=== PATIENT | male | born 2000 | race African-American/Black ===

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

== ENCOUNTER 2020-03-19 20:53 | Emergency (ER) | payer BC, OTHER ==
[~2020-03-19] VITALS: Ht 182.9 cm; Wt 74.0 kg
[2020-03-19 21:41] LABS: BASO % 0 % (0-3); EOS # 0.1 x10^3/uL (0.0-0.7); EOS % 1 % (0-3); HEMATOCRIT 38.9 % (39.0-53.0); HEMOGLOBIN 13.4 g/dL (13.0-17.5); LYMPH # 1.8 x10^3/uL (1.0-4.8); LYMPH % 25 % (24-48); MEAN CORPUSCULAR HEMOGLOBIN 28 pg (25-35); MEAN CORPUSCULAR HGB CONC 34 g/dL (31-37); MEAN CORPUSCULAR VOLUME 80 fL (79-100); MONO # 0.7 x10^3/uL (0.0-1.1); MONO % 10 % (0-9); NEUT # 4.6 x10^3/uL (1.8-7.7); NEUT % 63 % (31-73); PLATELET COUNT 312 x10^3/uL (140-400); RED BLOOD COUNT 4.85 x10^6/uL (4.30-5.70); RED CELL DISTRIBUTION WIDTH 13.3 % (11.5-14.5); WHITE BLOOD COUNT 7.3 x10^3/uL (4.0-11.0)
--- NOTE | 2020-03-19 21:45 | PHYS DOC ---
Past Medical History Past Medical History: No Pertinent History Additional Past Medical Histor: ADHD, Lt punctured ear drum several years ago. Past Surgical History: No Surgical History Smoking Status: Current Some Day Smoker Alcohol Use: None Drug Use: None General Adult EDM: Chief Complaint: CHEST PAIN HPI: HPI: The history was obtained from the patient. Patient is a 19-year-old male with PMH tobacco abuse who presents with a chief complaint of intermittent chest pain. Patient states he has had intermittent chest pain over the past 3 weeks. He states that last several hours at a time and then resolved on its own. He states going to sleep is only thing that seems to make the pain go away. He states is not made worse with food. He denies any exertional component to his symptoms. Denies any syncope. He does state that he has been more stressed with work and school recently. He thinks this may be related to anxiety. Notes he quit smoking couple weeks ago due to the pain. Denies any drug or alcohol use. Denies any back pain. States his mom wanted him to be evaluated today. Patient denies any history of immobilization greater than 48 hours, recent hospitalizations, recent surgery, recent trauma, , oral contraceptive usage, hormone replacement therapy, air travel greater than 8 hours, recent infectious disease, or general deterioration of their overall condition. Review of Systems: Review of Systems: Constitutional: Denies fever or chills. [] Eyes: Denies change in visual acuity. [] HENT: Denies nasal congestion or sore throat. [] Respiratory: Denies cough or shortness of breath. [] Cardiovascular: Positive for chest pain GI: Denies abdominal pain, nausea, vomiting, bloody stools or diarrhea. [] : Denies dysuria. [] Musculoskeletal: Denies back pain or joint pain. [] Integument: Denies rash. [] Neurologic: Denies headache, focal weakness or sensory changes. [] Endocrine: Denies polyuria or polydipsia. [] Lymphatic: Denies swollen glands. [] Psychiatric: Positive for anxiety Heart Score: HEART Score for Chest Pain: HEART Score for Chest Pain Response (Comments) Value History Slighlty/Non-Suspicious 0 ECG Normal 0 Age < 45 0 Risk Factors No Risk Factors 0 Troponin < Normal Limit 0 Total 0 Risk Factors: Risk Factors: DM, Current or recent (<one month) smoker, HTN, HLP, family history of CAD, obesity. Risk Scores: Score 0 - 3: 2.5% MACE over next 6 weeks - Discharge Home Score 4 - 6: 20.3% MACE over next 6 weeks - Admit for Clinical Observation Score 7 - 10: 72.7% MACE over next 6 weeks - Early Invasive Strategies Allergies: Allergies: Allergies Coded Allergies Type Severity Reaction Last Updated Verified No Known Drug Allergies 11/26/14 No Physical Exam: PE: Constitutional: Well developed, well nourished, no acute distress, non-toxic appearance. [] HENT: Normocephalic, atraumatic, bilateral external ears normal, oropharynx mois t, no oral exudates, nose normal. [] Eyes: PERRLA, EOMI, conjunctiva normal, no discharge. [] Neck: Normal range of motion, no tenderness, supple, no stridor. [] Cardiovascular:Heart rate regular rhythm, no murmur [] Lungs & Thorax: Bilateral breath sounds clear to auscultation [] Abdomen: , soft, no tenderness, no masses, no pulsatile masses. [] Skin: Warm, dry, no erythema, no rash. [] Back: No tenderness, no CVA tenderness. [] Extremities: No tenderness, no cyanosis, no clubbing, ROM intact, no edema. [] Neurologic: Alert and oriented X 3, normal motor function, normal sensory function, no focal deficits noted. [] Psychologic: Affect normal, judgement normal, mood normal. [] Current Patient Data: Labs: Laboratory Tests Test 03/19/20 21:25 White Blood Count 7.3 x10^3/uL Red Blood Count 4.85 x10^6/uL Hemoglobin 13.4 g/dL Hematocrit 38.9 % Mean Corpuscular Volume 80 fL Mean Corpuscular Hemoglobin 28 pg Mean Corpuscular Hemoglobin Concent 34 g/dL Red Cell Distribution Width 13.3 % Platelet Count 312 x10^3/uL Neutrophils (%) (Auto) 63 % Lymphocytes (%) (Auto) 25 % Monocytes (%) (Auto) 10 % Eosinophils (%) (Auto) 1 % Basophils (%) (Auto) 0 % Neutrophils # (Auto) 4.6 x10^3/uL Lymphocytes # (Auto) 1.8 x10^3/uL Monocytes # (Auto) 0.7 x10^3/uL Eosinophils # (Auto) 0.1 x10^3/uL Basophils # (Auto) 0.0 x10^3/uL Sodium Level 141 mmol/L Potassium Level 3.5 mmol/L Chloride Level 104 mmol/L Carbon Dioxide Level 30 mmol/L Anion Gap 7 Blood Urea Nitrogen 11 mg/dL Creatinine 1.1 mg/dL Estimated GFR (Cockcroft-Gault) 104.3 BUN/Creatinine Ratio 10 Glucose Level 91 mg/dL Calcium Level 8.8 mg/dL Total Bilirubin 0.6 mg/dL Aspartate Amino Transf (AST/SGOT) 20 U/L Alanine Aminotransferase (ALT/SGPT) 34 U/L Alkaline Phosphatase 70 U/L Troponin I Quantitative < 0.017 ng/mL Total Protein 8.3 g/dL Albumin 4.1 g/dL Albumin/Globulin Ratio 1.0 Lipase 55 U/L Current Medications Medications (Trade) Dose Ordered Sig/Selene Route PRN Reason Start Time Stop Time Status Last Admin Dose Admin Sodium Chloride 1,000 ml @ 1,000 mls/hr 1X ONCE IV 03/19/20 22:15 03/19/20 23:14 DC 03/19/20 22:08 EKG: EKG: EKG consistent with normal sinus rhythm. Ventricular rate is 64 bpm. [place] normal. Intervals normal. No acute ischemic changes noted. [] Radiology/Procedures: Radiology/Procedures: [] Course & Med Decision Making: Course & Med Decision Making Pertinent Labs and Imaging studies reviewed. (See chart for details) Patient is a well-appearing 19-year-old male who presents with chief complaint of intermittent chest pain over the past several weeks. Initial vital signs unremarkable. EKG without ischemic changes. Initial troponin negative. PERC negative. Overall I do have low suspicion for ACS. Patient is low risk heart score. He thinks this could be related to some anxiety as he has had more stress at work recently. Overall I do feel he is appropriate for discharge home with close outpatient follow-up. Patient is agreeable to this plan. Return precautions discussed and understood. Stable for discharge. Dragon Disclaimer: Dragon Disclaimer: This electronic medical record was generated, in whole or in part, using a voice recognition dictation system. Departure Departure Impression: Primary Impression: Chest pain Qualified Codes: R07.9 - Chest pain, unspecified Disposition: HOME, SELF-CARE Condition: GOOD Referrals: UNKNOWN PCP NAME (PCP) Additional Instructions: [facility] [address] [place] [address] [facility] [address] [place] [address] [facility] CARE [address] [facility] [place] [address] [facility] [address] [place] [address] [facility] [address] [place] [address] [address] [place] [address] [address] [place] [address] [facility] [address] [place] [address] [facility] [address] [place] [address] [facility] [address] [place] [address] Scripts Hydroxyzine Hcl (HYDROXYZINE HCL) 25 Mg Tablet 1 TAB PO TID, #16 TAB Prov: MAX MEZA DO 03/19/20 Justicifation of Admission Dx: Justifications for Admission: Justification of Admission Dx: N/A MAX MEZA DO Mar 19, 2020 21:45
[2020-03-19 21:50] LABS: CALCIUM 8.8 mg/dL (8.5-10.1); CREATININE 1.1 mg/dL (0.7-1.3); GFR 104.3; POTASSIUM 3.5 mmol/L (3.5-5.1)
[2020-03-19 21:56] LABS: ALBUMIN 4.1 g/dL (3.4-5.0); TOTAL BILIRUBIN 0.6 mg/dL (0.2-1.0); TOTAL PROTEIN 8.3 g/dL (6.4-8.2)
[2020-03-19] MEDS ORDERED: IV NORMAL SALINE 1000ML BAG 1,000 ML IV ONE (22:15)
--- NOTE | 2020-03-19 22:15 | RAD ---
Exam: Chest one view INDICATION: Chest pain TECHNIQUE: Frontal view of the chest Comparisons: None FINDINGS: The cardiomediastinal silhouette and pulmonary vessels are within normal limits. The lung and pleural spaces are clear. IMPRESSION: No acute cardiopulmonary process. Electronically signed by: Danny Zamudio MD (03/19/2020 10:12 PM) [id number]
[2020-03-19 23:15] VITALS: BP 128/77
[2020-03-19] MEDS ORDERED: HYDR25TA PO (23:31)
--- NOTE | 2020-03-20 03:03 | EKG ---
[facility] [address] [place] [address] Test Date: 2020-03-19 Test Time: 21:09:15 Pat Name: QUIN REED Department: Room: Gender: M Group Burn[employer] Machine: : 2000 Requested By: MAX MEZA Order Number: [id number] Reading MD: Measurements Intervals Hardy Rate: 64 P: 54 WI: 154 QRS: 25 QRSD: 76 T: 42 QT: 380 QTc: 392 Interpretive Statements SINUS RHYTHM NORMAL ECG RI6.02 No previous ECG available for comparison
== END 2020-03-19 23:53 | disposition home or self-care (01) ==
LOC: ER 20:53
DX: R07.89 Other chest pain (principal); Z72.0 Tobacco use
CPT/HCPCS: 36415; 71045; 80053; 83690; 84484; 85025; 93005; 96360; 96361; 99285; J7030

== ENCOUNTER 2021-11-27 18:14 | Emergency (ER) | payer OTHER ==
[~2021-11-27] VITALS: Ht 177.8 cm; Wt 73.8 kg
[~2021-11-27 18:14] MED LIST changes: +HYDR25TA PO
[2021-11-27] MEDS ORDERED: ORPHENADRINE CITRATE 60 MG/2 ML VIAL. IM ONE (18:45)
[2021-11-27] MEDS ORDERED: KETOROLAC 60 MG/2 ML VIAL. IM ONE (18:45)
--- NOTE | 2021-11-27 19:10 | PHYS DOC ---
Past Medical History Past Medical History: No Pertinent History Additional Past Medical Histor: ADHD, Lt punctured ear drum several years ago. Past Surgical History: No Surgical History Smoking Status: Never Smoker Alcohol Use: Occasionally Drug Use: None General Adult EDM: Chief Complaint: BACK PAIN OR INJURY HPI: HPI: Patient is a 21-year-old male who presents today with headache and low back pain. 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 He said he took some Tylenol and ibuprofen for the pain, he said today while at work he had some dizziness and increased headache so he decided to come to the emergency department for further evaluation and management. Patient denies of loss of consciousness, patient states he is able to drive he has had no nausea or vomiting he has had no blurred vision double vision and he has had no neurological concerns. Review of Systems: Review of Systems: Constitutional: Denies fever or chills. [] Eyes: Denies change in visual acuity. [] HENT: Denies nasal congestion or sore throat. [] Respiratory: Denies cough or shortness of breath. [] Cardiovascular: Denies chest pain or edema. [] GI: Denies abdominal pain, nausea, vomiting, bloody stools or diarrhea. [] : Denies dysuria. [] Musculoskeletal: Low back pain Integument: Denies rash. [] Neurologic: Headache denies focal weakness or sensory changes. [] Endocrine: Denies polyuria or polydipsia. [] Lymphatic: Denies swollen glands. [] Psychiatric: Denies depression or anxiety. [] Heart Score: C/O Chest Pain: No Risk Factors: Risk Factors: DM, Current or recent (<one month) smoker, HTN, HLP, family history of CAD, obesity. Risk Scores: Score 0 - 3: 2.5% MACE over next 6 weeks - Discharge Home Score 4 - 6: 20.3% MACE over next 6 weeks - Admit for Clinical Observation Score 7 - 10: 72.7% MACE over next 6 weeks - Early Invasive Strategies Current Medications: Current Medications Medications (Trade) Dose Ordered Sig/Selene Start Time Stop Time Status Last Admin Dose Admin Ketorolac Tromethamine (Toradol Im) 60 mg 1X ONCE 11/27/21 18:45 11/27/21 18:46 DC Orphenadrine Citrate (Norflex) 60 mg 1X ONCE 11/27/21 18:45 11/27/21 18:46 DC Allergies: Allergies: Allergies Coded Allergies Type Severity Reaction Last Updated Verified No Known Drug Allergies 11/26/14 No Physical Exam: PE: Constitutional: Well developed, well nourished, no acute distress, non-toxic appearance. [] HENT: Normocephalic, atraumatic, bilateral external ears normal, oropharynx moist, no oral exudates, nose normal. [] Eyes: PERRLA, EOMI, conjunctiva normal, no discharge. [] Neck: Normal range of motion, no tenderness, supple, no stridor. [] Cardiovascular:Heart rate regular rhythm, no murmur [] Lungs & Thorax: Bilateral breath sounds clear to auscultation [] Abdomen: Bowel sounds normal, soft, no tenderness, no masses, no pulsatile masses. [] Skin: Warm, dry, no erythema, no rash. [] Back: No tenderness, no CVA tenderness. [] Extremities: No tenderness, no cyanosis, no clubbing, ROM intact, no edema. [] Neurologic: Alert and oriented X 3, normal motor function, normal sensory function, no focal deficits noted. [] Psychologic: Affect normal, judgement normal, mood normal. [] Current Patient Data: Vital Signs: Vital Signs Date Time Temp Pulse Resp B/P (MAP) Pulse Ox O2 Delivery O2 Flow Rate FiO2 11/27/21 18:17 98.5 62 18 162/86 (111) 100 Room Air 98.5 EKG: EKG: [] Radiology/Procedures: Radiology/Procedures: [] Course & Med Decision Making: Course & Med Decision Making Pertinent Labs and Imaging studies reviewed. (See chart for details) 1945 patient states that pain is somewhat improved but he continues to have a headache, I did inform him to avoid using electronic devices or watching TV is like to make his headache worse. Patient will be given some by mouth pain medications for home as well as Flexeril, he is to follow-up with his primary care physician one of the clinics listed in his discharge instructions or his Workmen's Comp. agency for further evaluation and management of his back pain. Patient verbalized understand this and agreeable with plan of care. Dalia Disclaimer: Dalia Disclaimer: This electronic medical record was generated, in whole or in part, using a voice recognition dictation system. Departure Departure Impression: Primary Impression: Headache Qualified Codes: R51.9 - Headache, unspecified Additional Impression: Low back pain Qualified Codes: M54.50 - Low back pain, unspecified Disposition: 01 HOME / SELF CARE / HOMELESS Condition: STABLE Referrals: UNKNOWN PCP NAME (PCP) Patient Instructions: Back Pain, Adult, General Headache Without Cause Additional Instructions: Diclofenac Take one tablet every 12 hours as needed for pain, take with food can upset stomach if taken on an empty stomach Flexeril take 1 tablet every 8 hours as needed for muscle spasms, use with caution may cause drowsiness Ice to the affected areas 20 minutes on 3-4 times daily Follow the [facility] discharge instructions for precautions and limiting of electronic devices and things to expect Follow-up with your primary care physician one of the listed clinics below or your Workmen's Comp. agency for further evaluations should your pain continue Return to the emergency department if your headache gets worse and does not go away you have repeated vomiting, you have a change in mental status, you have a seizure or you pass out or you have numbness, weakness, or slurred speech [facility] [address] [place] [address] [facility] [address] [place] [address] [facility] [address] [facility] [address] [facility] [address] [place] [address] [facility] [address] [place] [address] [address] [place] [address] [address] [place] [address] [facility] [address] [place] [address] [facility] [address] [place] [address] [facility] [address] [place] [address] Scripts Diclofenac Sodium (DICLOFENAC SODIUM) 50 Mg Tablet.dr 50 MG PO TID PRN PRN for PAIN, #30 TAB Prov: SHIRA ZALDIVAR INSPECTOR [employer]ESS 11/27/21 Cyclobenzaprine Hcl (CYCLOBENZAPRINE HCL) 10 Mg Tablet 10 MG PO TID PRN PRN for MUSCLE SPASMS, #14 TAB Prov: SHIRA ZALDIVAR INSPECTOR [employer]ESS 11/27/21 SHIRA ZALDIVAR INSPECTOR [employer]ESS November 27, 2021 19:10
[2021-11-27 19:45] VITALS: BP 160/73
[2021-11-27] MEDS ORDERED: CYCL10TA19 PO (19:57)
[2021-11-27] MEDS ORDERED: DICL50TA4 PO (19:57)
== END 2021-11-27 20:00 | disposition home or self-care (01) ==
LOC: ER 18:14
DX: R51.9 Headache, unspecified (principal); M54.50 Low back pain, unspecified; F90.9 Attention-deficit hyperactivity disorder, unspecified type
CPT/HCPCS: 96372; 99284; J1885; J2360